=== PATIENT | female | born 1965 | race Caucasian/White ===

== ENCOUNTER 2021-02-01 11:16 | Emergency (ER) | payer OTHER ==
--- NOTE | 2021-02-01 11:44 | EDM.PDOC ---
ED HPI GENERAL MEDICAL PROBLEM - General Chief Complaint: General Stated Complaint: FISH HOOK Time Seen by Provider: 02/01/21 11:30 Source of Information: Reports: Patient History Limitations: Reports: No Limitations - History of Present Illness INITIAL COMMENTS - FREE TEXT/NARRATIVE: This patient presents to the ER for evaluation of a foreign body in her finger. She was fishing when she caught a fishhook in her left thumb. They were able to cut the lower free however there is a portion of the hook remaining embedded in the palmar's aspect of her thumb. She denies other injuries or concerns. She denies allergies to medications. Her tetanus is up-to-date and she states she had her last booster 2 months ago. Onset: Today, Sudden ED ROS GENERAL - Review of Systems Review Of Systems: Comprehensive ROS is negative, except as noted in HPI. ED EXAM, GENERAL - Physical Exam Exam: See Below Exam Limited By: No Limitations General Appearance: Alert, No Apparent Distress Skin Exam: Warm, Dry, Wound/Incision (Foreign body embedded in Castillo aspect of left first digit just beyond the DIP joint.) Course - Re-Assessments/Exams Free Text/Narrative Re-Assessment/Exam: 02/01/21 11:44 This patient presents to the emergency department for removal of foreign body from her left first digit. The area around the foreign body was anesthetized with an infiltration of 1% lidocaine with approximately 1 mL. The fishhook was pushed through and easily removed. The area was cleaned well with Hibiclens; bacitracin and a sterile Band-Aid were applied. The patient tolerated the procedure very well. There are no obvious complications. I did discuss supportive care with her to include keeping the wound clean, applying antibiotic ointment and to follow-up with her primary care provider as needed. Departure - Departure Time of Disposition: 11:50 Disposition: Admitted As Inpatient 65 Condition: Good Clinical Impression: Foreign body (FB) in soft tissue - Discharge Information *PRESCRIPTION DRUG MONITORING PROGRAM REVIEWED*: Not Applicable *COPY OF PRESCRIPTION DRUG MONITORING REPORT IN PATIENT [facility]: Not Applicable Forms: ED Department Discharge
== END 2021-02-01 11:44 | disposition home or self-care (01) ==
LOC: LB.ED 11:16
DX: S60.352A Superficial foreign body of left thumb, initial encounter (principal); W45.8XXA Other foreign body or object entering through skin, initial encounter
CPT/HCPCS: 99282